=== PATIENT | female | born 1935 | race Caucasian/White ===

== ENCOUNTER 2017-02-23 11:10 | Emergency (ER) | payer OTHER, MEDICARE ==
[~2017-02-23] VITALS: Ht 152.4 cm; Wt 41.8 kg
[~2017-02-23 11:10] MED LIST: ALOE PO; ALOE VERA PO; ALOE VERA25 MG PO; ATROVENT H200 INHALA IH; Advair HFA 115/21 IH; BUMEX1 MG PO; C-10001000 M1 PO; CALCIUM500 M4 PO; CALCIUM600 MG PO; CALTRATE 6001 TABLET PO; CALTRATE PLUS1 EACH PO; CARDIZEM CD180 MG PO; CARDIZEM CD240 MG PO; COMBIVENT RESPIM4 GM IH; CONCERTA18 MG PO; COUMADIN,JANTOVE1 MG PO; COUMADIN1 MG PO; COZAAR50 MG PO; Cardizem CD,Cartia X PO; Combivent IH; Coumadin,Jantoven PO; Cozaar PO; DAILY VITAMIN1 EAC8 PO; DIGOX125 MCG PO; DIGOXIN125 MCG PO; DILTIAZEM 24HR120 MG PO; DILTIAZEM 24HR240 MG PO; FOSAMAX70 MG PO; FUROSEMIDE40 MG PO; KLOR-CON M2020 MEQ PO; LANOXIN125 MCG PO; LASIX10 MG PO; LASIX20 MG PO; LASIX40 MG PO; LOSARTAN POTASS50 MG PO; Lanoxin,Digitek PO; Lasix PO; METOLAZONE2.5 MG PO; MONTELUKAST SOD10 MG PO; MUCINEX D ER T1 EACH PO; OSTEO BI-FLEX1 EAC1 PO; OSTEO-BIFLE1 CAPSULE PO; PAROXETINE HCL20 MG PO; POTASSIUM CHLO10 ME3 PO; POTASSIUM CHLO10 MEQ PO; POTASSIUM CHLO20 ME1 PO; POTASSIUM CHLO20 ME2 PO; PREDNISONE50 MG PO; PRILOSEC OTC20 MG PO; PRILOSEC20 MG PO; PRILOSEC20.6 MG PO; PROVENTIL HFA6.7 GM IH; PROVENTIL,2.5 MG/3 M IH; Proventil,Ventolin H IH; SINGULAIR10 MG PO; SPIRIVA1 INHALATI IH; STOOL SOFTENER100 M1 PO; SYMBICORT60 INHALAT IH; TAZTIA XT120 M1 PO; TOPROL XL50 MG PO; VENTOLIN HFA18 GM IH; VESICARE5 MG PO; VITAMIN C PLUS PO; VITAMIN C500 M1 PO; WELLBUTRIN SR100 MG PO; Wellbutrin PO; XARELTO15 MG PO; ZITHROMAX Z-PA250 MG PO; [UNRECOGNIZED DRUG - OTHER] PO; predniSONE PO
[2017-02-23] MEDS ORDERED: TYLENOL WITH C1 EACH PO (14:04)
[2017-02-23 14:41] VITALS: BP 124/60
== END 2017-02-23 14:42 | disposition home or self-care (01) ==
LOC: EME 11:10
DX: S42.031A Displaced fracture of lateral end of right clavicle, initial encounter for closed fracture (principal); S80.01XA Contusion of right knee, initial encounter; S00.11XA Contusion of right eyelid and periocular area, initial encounter; M25.551 Pain in right hip; W01.0XXA Fall on same level from slipping, tripping and stumbling without subsequent striking against object, initial encounter; I48.91 Unspecified atrial fibrillation; Z79.01 Long term (current) use of anticoagulants; I10 Essential (primary) hypertension; J44.9 Chronic obstructive pulmonary disease, unspecified; M50.322 Other cervical disc degeneration at C5-C6 level; Z87.891 Personal history of nicotine dependence
CPT/HCPCS: 70450; 72125; 72170; 73030; 73564; 99281; 99284

== ENCOUNTER 2017-03-02 15:27 | Inpatient (IN) | payer OTHER, MEDICARE ==
[~2017-03-02] VITALS: Ht 152.4 cm; Wt 43.6 kg
[~2017-03-02 15:27] MED LIST changes: +TYLENOL WITH C1 EACH PO
[2017-03-02 17:04] LABS: BASOPHIL COUNT 0.1 K/uL (0-0.1); EOSINOPHIL (%) 0.1 % (0-5); HEMATOCRIT 38.1 % (36.0-46.0); IMMATURE GRANULOCYTE (%) 0.8 % (0.0-0.7); IMMATURE GRANULOCYTE COUNT 0.2 K/uL; INSTRUMENT ABS NEUTROPHIL CT 17.4 K/uL; LYMPHOCYTE COUNT 0.8 K/uL (1.0-2.8); MCH 33.3 PG (29.0-34.0); MCHC 34.6 G/DL (30.0-36.0); MCV 96.2 FL (83-99); MEAN PLAT.VOLUME 11.3 uM^3 (9.5-12.4); MONOCYTE (%) 4.7 % (3-12); MONOCYTE COUNT 0.9 K/uL (0-0.8); NEUTROPHIL (%) 89.9 % (45-76); NEUTROPHIL COUNT 17.4 K/uL (1.8-6.4); PLATELET COUNT 274 K/uL (156-360); RBC DIS.WIDTH-CV 12.9 % (11.8-14.6); RBC DIS.WIDTH-SD 45.8 % (39-53); RED BLOOD COUNT 3.96 M/uL (3.80-5.20); WHITE BLOOD COUNT 19.4 K/uL (4.1-10.2)
[2017-03-02 17:13] LABS: CHLORIDE 96 mEq/L (99-109); POTASSIUM 4.3 mEq/L (3.7-5.4); SODIUM 134 mEq/L (136-147)
[2017-03-02 17:15] LABS: GLUCOSE 158 mg/dL (70-99)
[2017-03-02 17:16] LABS: ANION GAP 11 MEQ/L (2-14)
[2017-03-02 17:17] LABS: TOTAL BILIRUBIN 0.9 mg/dL (0.0-1.0)
[2017-03-02 17:18] LABS: ALKALINE PHOSPHATASE 241 IU/L (3-129)
[2017-03-02 17:19] LABS: GFR ESTIMATE (CALCULATED) 51 mL/min/
[2017-03-02 17:20] LABS: DIRECT BILIRUBIN 0.4 mg/dL (0.0-0.3); UREA NITROGEN (BUN) 21 mg/dL (9-23)
[2017-03-02 17:22] LABS: LIPASE 9 U/L (1.0-51.0)
[2017-03-02 17:30] LABS: ADD MIUA? YES; BILIRUBIN NEGATIVE; BLOOD NEGATIVE; COLOR YELLOW ((YELLOW)); GLUCOSE (STRIP) NEGATIVE; KETONES NEGATIVE; LEUKOCYTES NEGATIVE; NITRITE NEGATIVE; PROTEIN (STRIP) NEGATIVE; SPECIFIC GRAVITY 1.011 (1.000-1.030); UROBILINOGEN 0.2 MG/DL (0.2-1.0)
[2017-03-02 17:46] LABS: BACTERIA NONE SEEN /HPF; EPITHELIAL CELLS NONE SEEN /HPF; HYALINE CASTS 0-5 /LPF; MUCUS TRACE /LPF; RED BLOOD CELLS 0-5 /HPF (0-5); WHITE BLOOD CELLS 0-5 /HPF (0-5)
[2017-03-02 18:05] LABS: TROP-I INTERPRETATION NEGATIVE; TROPONIN-I 0.02 ng/mL (0.0-0.30)
[2017-03-02] MEDS ORDERED: SPIRIVA1 INHALATI IH (20:53)
[2017-03-02] MEDS ORDERED: WOMEN'S 50 PLU1 EACH PO (20:55)
[2017-03-02] MEDS ORDERED: MOVE FREE JOIN1 EACH PO (20:56)
[2017-03-02] MEDS ORDERED: PEPCID AC20 MG PO (20:56)
[2017-03-02] MEDS ORDERED: COLACE100 MG PO (20:57)
[2017-03-02] MEDS ORDERED: ZYRTEC10 M3 PO (20:57)
[2017-03-02] MEDS ORDERED: PROVENTIL,2.5 MG/3 M IH (20:57)
[2017-03-02] MEDS ORDERED: TRAMADOL HCL50 MG PO (20:57)
[2017-03-02 23:14] VITALS: BP 162/70
[2017-03-03 01:57] LABS: TROP-I INTERPRETATION NEGATIVE; TROPONIN-I 0.02 ng/mL (0.0-0.30)
[2017-03-03 02:54] VITALS: BP 127/58
[2017-03-03 06:18] LABS: BASOPHIL COUNT 0.1 K/uL (0-0.1); EOSINOPHIL (%) 1.1 % (0-5); EOSINOPHIL COUNT 0.1 K/uL (0-0.3); HEMATOCRIT 33.2 % (36.0-46.0); IMMATURE GRANULOCYTE (%) 0.5 % (0.0-0.7); IMMATURE GRANULOCYTE COUNT 0.1 K/uL; INSTRUMENT ABS NEUTROPHIL CT 7.7 K/uL; LYMPHOCYTE COUNT 1.5 K/uL (1.0-2.8); MCH 32.4 PG (29.0-34.0); MCHC 33.1 G/DL (30.0-36.0); MCV 97.6 FL (83-99); MEAN PLAT.VOLUME 11.4 uM^3 (9.5-12.4); MONOCYTE COUNT 1.2 K/uL (0-0.8); NEUTROPHIL COUNT 7.7 K/uL (1.8-6.4); PLATELET COUNT 237 K/uL (156-360); RBC DIS.WIDTH-CV 13.3 % (11.8-14.6); RBC DIS.WIDTH-SD 47.4 % (39-53); WHITE BLOOD COUNT 10.6 K/uL (4.1-10.2)
[2017-03-03 06:35] LABS: TROP-I INTERPRETATION NEGATIVE; TROPONIN-I 0.02 ng/mL (0.0-0.30)
[2017-03-03 07:52] LABS: ANION GAP 10 MEQ/L (2-14); CHLORIDE 102 MEQ/L (99-109); GFR ESTIMATE (CALCULATED) > 59 mL/min/; POTASSIUM 4.3 MEQ/L (3.7-5.4); SAMPLE HEMOLYSIS CHECK 0; SAMPLE ICTERIC CHECK 0; SAMPLE LIPEMIA CHECK 0; SODIUM 136 MEQ/L (136-147); UREA NITROGEN (BUN) 16 mg/dL (9-23)
[2017-03-03 07:54] LABS: GLUCOSE 71 mg/dL (70-99)
[2017-03-03 08:05] VITALS: BP 121/57
[2017-03-03 11:37] VITALS: BP 124/60
[2017-03-03 14:34] VITALS: BP 141/81
[2017-03-03 21:30] VITALS: BP 131/59
[2017-03-04 00:37] VITALS: BP 132/74
[2017-03-04 04:18] VITALS: BP 160/72
[2017-03-04 10:15] VITALS: BP 142/78
[2017-03-04 12:30] VITALS: BP 137/79
[2017-03-04 19:45] VITALS: BP 159/71
[2017-03-05 01:16] VITALS: BP 132/57
[2017-03-05 05:26] VITALS: BP 168/75
[2017-03-05 06:01] LABS: BASOPHIL COUNT 0.1 K/uL (0-0.1); EOSINOPHIL (%) 4.2 % (0-5); EOSINOPHIL COUNT 0.5 K/uL (0-0.3); HEMATOCRIT 32.5 % (36.0-46.0); IMMATURE GRANULOCYTE (%) 0.8 % (0.0-0.7); IMMATURE GRANULOCYTE COUNT 0.1 K/uL; INSTRUMENT ABS NEUTROPHIL CT 6.9 K/uL; LYMPHOCYTE COUNT 1.9 K/uL (1.0-2.8); MCH 33.9 PG (29.0-34.0); MCHC 35.1 G/DL (30.0-36.0); MCV 96.7 FL (83-99); MEAN PLAT.VOLUME 11.3 uM^3 (9.5-12.4); MONOCYTE (%) 10.5 % (3-12); MONOCYTE COUNT 1.1 K/uL (0-0.8); NEUTROPHIL (%) 65.4 % (45-76); NEUTROPHIL COUNT 6.9 K/uL (1.8-6.4); PLATELET COUNT 244 K/uL (156-360); RBC DIS.WIDTH-CV 13.3 % (11.8-14.6); RBC DIS.WIDTH-SD 47.4 % (39-53); RED BLOOD COUNT 3.36 M/uL (3.80-5.20); WHITE BLOOD COUNT 10.6 K/uL (4.1-10.2)
[2017-03-05 06:21] LABS: ALKALINE PHOSPHATASE 137 IU/L (3-129); ANION GAP 7 MEQ/L (2-14); CHLORIDE 105 MEQ/L (99-109); GFR ESTIMATE (CALCULATED) > 59 mL/min/; GLUCOSE 83 mg/dL (70-99); SAMPLE HEMOLYSIS CHECK 0; SAMPLE ICTERIC CHECK 0; SAMPLE LIPEMIA CHECK 0; SODIUM 136 MEQ/L (136-147); TOTAL BILIRUBIN 0.6 MG/DL (0.0-1.0); UREA NITROGEN (BUN) 9 mg/dL (9-23)
[2017-03-05 06:22] LABS: POTASSIUM 3.2 MEQ/L (3.7-5.4)
[2017-03-05 08:50] VITALS: BP 135/69
[2017-03-05 11:24] VITALS: BP 152/70
== END 2017-03-05 13:09 | DRG 394 ==
LOC: EME 15:27 → 4EAST 20:41 → EDOF 20:41 → 4EAST 22:53
PROVIDERS: Hospitalist; Nurse Practitioner Adult Health; Physician Assistant
DX: K62.89 Other specified diseases of anus and rectum (principal); I95.9 Hypotension, unspecified; I48.1 Persistent atrial fibrillation; I27.2 Other secondary pulmonary hypertension; R65.10 Systemic inflammatory response syndrome (SIRS) of non-infectious origin without acute organ dysfunction; J44.9 Chronic obstructive pulmonary disease, unspecified; K80.20 Calculus of gallbladder without cholecystitis without obstruction; R41.0 Disorientation, unspecified; K56.41 Fecal impaction; R94.31 Abnormal electrocardiogram [ECG] [EKG]; R41.82 Altered mental status, unspecified; R53.1 Weakness; D72.829 Elevated white blood cell count, unspecified; I08.1 Rheumatic disorders of both mitral and tricuspid valves; I10 Essential (primary) hypertension; I25.10 Atherosclerotic heart disease of native coronary artery without angina pectoris; I35.0 Nonrheumatic aortic (valve) stenosis; K21.9 Gastro-esophageal reflux disease without esophagitis; R29.6 Repeated falls; S00.83XD Contusion of other part of head, subsequent encounter; S42.001D Fracture of unspecified part of right clavicle, subsequent encounter for fracture with routine healing; W19.XXXD Unspecified fall, subsequent encounter; Z68.1 Body mass index [BMI] 19.9 or less, adult; Z79.01 Long term (current) use of anticoagulants; Z79.51 Long term (current) use of inhaled steroids; Z79.83 Long term (current) use of bisphosphonates; Z79.899 Other long term (current) drug therapy; Z87.891 Personal history of nicotine dependence; Z90.49 Acquired absence of other specified parts of digestive tract; M25.511 Pain in right shoulder; R63.0 Anorexia; R63.4 Abnormal weight loss; I45.10 Unspecified right bundle-branch block
CPT/HCPCS: 70450; 71010; 74176; 76705; 78227; 78582; 80048; 80053; 80162; 81003; 82248; 82272; 82306; 83605; 83690; 84484; 85025; 87086; 87493; 93005; 93306; 94640; 94640 76; 99202; 99281; 99285; A9537; A9540; A9567; J0744; J1644; J2805; J7030; S0030

== ENCOUNTER 2017-03-08 21:03 | Inpatient (IN) | payer OTHER, MEDICARE ==
[~2017-03-08] VITALS: Ht 154.9 cm; Wt 43.9 kg
[~2017-03-08 21:03] MED LIST changes: +COLACE100 MG PO; +MOVE FREE JOIN1 EACH PO; +PEPCID AC20 MG PO; +TRAMADOL HCL50 MG PO; +WOMEN'S 50 PLU1 EACH PO; +ZYRTEC10 M3 PO
[2017-03-08 21:23] LABS: BICARBONATE 25.1 mEq/L (22-26); CARBOXY HGB 1.7 % (0-5); METHEMOGLOBIN 1.1 % (0-1.5); PCO2 37 mm Hg (35-45); PO2 559 mm Hg (80-100); SITE LEFT BRACHIAL; pH 7.44 (7.35-7.45)
[2017-03-08 21:24] LABS: DEVICE VENT; FI02 100 %; MECHANICAL RATE 16 resp/min; MODE A/C; PEEP 5 CM/H20; TIDAL VOLUME 400 ML; TOTAL RESP RATE 16 resp/min
[2017-03-08 21:35] LABS: HEMATOCRIT 32.8 % (36.0-46.0); MCH 32.8 PG (29.0-34.0); MCHC 33.8 G/DL (30.0-36.0); MEAN PLAT.VOLUME 11.7 uM^3 (9.5-12.4); PLATELET COUNT 211 K/uL (156-360); RBC DIS.WIDTH-CV 13.2 % (11.8-14.6); RBC DIS.WIDTH-SD 47.1 % (39-53); RED BLOOD COUNT 3.38 M/uL (3.80-5.20); WHITE BLOOD COUNT 11.7 K/uL (4.1-10.2)
[2017-03-08 21:45] LABS: CHLORIDE 105 mEq/L (99-109); SODIUM 134 mEq/L (136-147)
[2017-03-08 21:47] LABS: INTER. NORMALIZED RATIO 1.2; PROTHROMBIN TIME 12.5 (9.2-11.2); PTT 24.7 (25-32)
[2017-03-08 21:48] LABS: ANION GAP 6 MEQ/L (2-14)
[2017-03-08 21:51] LABS: GFR ESTIMATE (CALCULATED) > 59 mL/min/
[2017-03-08 21:52] LABS: GLUCOSE 153 mg/dL (70-99); POTASSIUM 4.6 mEq/L (3.7-5.4); UREA NITROGEN (BUN) 8 mg/dL (9-23)
[2017-03-08 21:57] LABS: TROP-I INTERPRETATION NEGATIVE; TROPONIN-I 0.05 ng/mL (0.0-0.30)
[2017-03-08 23:37] LABS: ADD MIUA? YES; BILIRUBIN NEGATIVE; BLOOD NEGATIVE; GLUCOSE (STRIP) NEGATIVE; KETONES NEGATIVE; LEUKOCYTES TRACE; NITRITE NEGATIVE; PROTEIN (STRIP) 30; SPECIFIC GRAVITY 1.013 (1.000-1.030); UROBILINOGEN 0.2 MG/DL (0.2-1.0)
[2017-03-08] MEDS ORDERED: INCRUSE ELLI62.5 MCG IH (23:38)
[2017-03-08] MEDS ORDERED: LASIX20 MG PO (23:39)
[2017-03-08 23:42] LABS: BACTERIA RARE /HPF; COLOR YELLOW ((YELLOW)); EPITHELIAL CELLS RARE /HPF; MUCUS TRACE /LPF; RED BLOOD CELLS 0-5 /HPF (0-5); UCUL ADDED? NO; WHITE BLOOD CELLS 0-5 /HPF (0-5)
[2017-03-08] MEDS ORDERED: MILK OF MAGN PO (23:43)
[2017-03-08] MEDS ORDERED: MIRALAX255 GM PO (23:43)
[2017-03-09] VITALS (11 sets, daily range): BP systolic 100–148; BP diastolic 53–101
[2017-03-09 02:03] LABS: TOTAL BILIRUBIN 0.7 mg/dL (0.0-1.0)
[2017-03-09 02:05] LABS: ALKALINE PHOSPHATASE 130 IU/L (3-129)
[2017-03-09 02:07] LABS: DIRECT BILIRUBIN 0.3 mg/dL (0.0-0.3)
[2017-03-09 02:13] LABS: AMPHETAMINE NEGATIVE (500 ng/mL); BARBITURATES NEGATIVE (200 ng/mL); BENZODIAZEPINES NEGATIVE (150 ng/mL); COCAINE NEGATIVE (150 ng/mL); INTERNAL CONTROLS VALID? YES; METHADONE NEGATIVE (200 ng/mL); METHAMPHETAMINE NEGATIVE (500 ng/mL); OPIATES (MORPHINE) NEGATIVE (100 ng/mL); OXYCODONE NEGATIVE (100 ng/mL); PHENCYCLIDINE NEGATIVE (25 ng/mL); PROPOXYPHENE NEGATIVE (300 ng/mL); THC CANNABINOIDS NEGATIVE (50 ng/mL); TRICYCLIC ANTIDEPRESSANTS NEGATIVE (300 ng/mL)
[2017-03-09 03:31] LABS: METH RESISTANT S AUREUS PCR NEGATIVE (NEGATIVE)
[2017-03-09 03:42] LABS: PROBE CHECK PASS; SPECIMEN PROCESSING CONTROL PASS
[2017-03-09 05:50] LABS: HEMATOCRIT 34.8 % (36.0-46.0); MCH 32.3 PG (29.0-34.0); MCHC 32.5 G/DL (30.0-36.0); MCV 99.4 FL (83-99); MEAN PLAT.VOLUME 11.6 uM^3 (9.5-12.4); PLATELET COUNT 238 K/uL (156-360); RBC DIS.WIDTH-CV 13.4 % (11.8-14.6); WHITE BLOOD COUNT 15.7 K/uL (4.1-10.2)
[2017-03-09 06:20] LABS: TROP-I INTERPRETATION POSITIVE; TROPONIN-I 1.47 ng/mL (0.0-0.30)
[2017-03-09 06:48] LABS: POINT-OF-CARE METER ID UU13113748; POINT-OF-CARE USER ID 609231305
[2017-03-09 07:31] LABS: ANION GAP 10 MEQ/L (2-14); CHLORIDE 108 MEQ/L (99-109); GFR ESTIMATE (CALCULATED) > 59 mL/min/; GLUCOSE 125 mg/dL (70-99); MAGNESIUM 1.3 mg/dl (1.3-2.7); POTASSIUM 4.9 MEQ/L (3.7-5.4); SAMPLE HEMOLYSIS CHECK 0; SAMPLE ICTERIC CHECK 0; SAMPLE LIPEMIA CHECK 0; SODIUM 138 MEQ/L (136-147); UREA NITROGEN (BUN) 9 mg/dL (9-23)
== END 2017-03-09 15:55 | DRG 64 ==
LOC: EME 21:03 → EDOF 03-09 00:20 → 4WEST 03-09 02:00
PROVIDERS: Emergency Medicine
PROC: 5A1935Z Respiratory Ventilation, Less than 24 Consecutive Hours (ICD-10-PCS; principal; 2017-03-09)
DX: I63.9 Cerebral infarction, unspecified (principal); J96.01 Acute respiratory failure with hypoxia; R40.20 Unspecified coma; Z51.5 Encounter for palliative care; Z66 Do not resuscitate; Z68.1 Body mass index [BMI] 19.9 or less, adult; K21.9 Gastro-esophageal reflux disease without esophagitis; J44.9 Chronic obstructive pulmonary disease, unspecified; I50.9 Heart failure, unspecified; I48.2 Chronic atrial fibrillation; K59.00 Constipation, unspecified; R29.6 Repeated falls; W01.0XXD Fall on same level from slipping, tripping and stumbling without subsequent striking against object, subsequent encounter; R56.9 Unspecified convulsions; H57.02 Anisocoria; I11.0 Hypertensive heart disease with heart failure; S42.001D Fracture of unspecified part of right clavicle, subsequent encounter for fracture with routine healing; Z87.891 Personal history of nicotine dependence; Z88.0 Allergy status to penicillin; Z88.2 Allergy status to sulfonamides
CPT/HCPCS: 36600; 70450; 71010; 80048; 80076; 81003; 82140; 82803; 82948; 83735; 84100; 84443; 84484; 85027; 85610; 85730; 87070; 87077; 87186; 87205; 87641; 93005; 94002; 94003; 99202; 99281; 99285; J1644; J1815; J1953; J1956; J2060; J2250; J3475; J7030; J7040; J7050; S0028